=== PATIENT | male | born 1990 | race Hispanic/Latino ===

== ENCOUNTER 2021-10-20 13:52 | Emergency (ER) | payer SELFPAY ==
[2021-10-20 14:05] VITALS: BP 152/82; PULSE 87; RESP 16; TEMP 37.1; O2SAT 99
--- NOTE | 2021-10-20 14:08 | ED.EAR ---
HPI - Ear Problem General Chief complaint: Ear Stated complaint: ear pain Time Seen by Provider: 10/20/21 14:08 Source: patient Mode of arrival: ambulatory Limitations: no limitations History of Present Illness HPI Narrative: Romario Wang is a 31 yo male with no PMH who comes to with complaints of right ear pain that started over a week ago. Was is with him who will help translate, patient states that having ear pain for about a week that nothing makes it worse or better except when he tries to lay on the right side. Is no history of ear infections has no sore throat has no allergic symptoms denies fever, is taken nothing for the pain Related Data Allergies Allergy/AdvReac Type Severity Reaction Status Date / Time No Known Allergies Allergy Verified 10/20/21 14:15 Review of Systems Review of Systems: CONSTITUTIONAL: Denies fever, chills, sweats. EYES: Denies visual changes, redness, discharge. ENT: Denies rhinorrhea, congestion, sore throat, right otalgia. CARDIOVASCULAR: Denies chest pain, palpitations, edema. RESPIRATORY: Denies dyspnea, wheezing, cough GASTROINTESTINAL: Denies abdominal pain, nausea, vomiting, diarrhea. GENITOURINARY: Denies dysuria, hematuria, abnormal discharge SKIN: Denies rash or itching. NEUROLOGIC: Denies numbness, or focal weakness. PSYCHIATRIC: Denies anxiety or depression. [facility] Social History Social History (Updated 10/20/21 @ 16:52 by Pam Smith CNP) Smoking status: Never smoker Alcohol intake: current Comments At time of signature, I agree with nursing past medical, surgical, social and family history. There is no relevant family history pertinent to the presenting complaint. Exam Narrative: GENERAL: This is a well-nourished, well-developed patient, in mild distress. HEAD: normocephalic, atraumatic. EYES: . Sclera clear/white. Vision is grossly intact. EARS: External ears normal, auditory canals erythematous with drainage from right ear canal that is white and thick. Right TM appears to be perforated right canal very tender hearing grossly intact. NOSE: External nose normal without nasal discharge, nares without redness, no rhinorrhea. THROAT: Mucous membranes moist, NECK: Neck supple, non-tender CARDIOVASCULAR: Regular rate and rhythm without murmurs, gallops, or rubs. RESPIRATORY: Clear to auscultation. Breath sounds equal bilaterally. No wheezes, rales, or rhonchi. GASTROINTESTINAL: Abdomen soft, SKIN: warm, intact with no suspicious lesions or rash, good texture and turgor. NEURO: awake, alert, and oriented to person, place and time. There were no obvious focal neurologic abnormalities. Steady gait EXTREMITIES: Normal range of motion. BACK: Nontender without deformity Course Course Emergency Course: Patient comes with bilateral ear pain ear pain much worse on the right; exam R appears to be perforated oozing white thick discharge Started on ofloxacin eardrops for perforated eardrum, amoxicillin as a general antibiotic discussed Tylenol or ibuprofen for pain patient verbalized he understood directions Level of Care: Express Care Visit Vital Signs Vital signs: Vital Signs Temperature 98.7 F 10/20/21 14:05 Pulse Rate 87 10/20/21 14:05 Respiratory Rate 16 10/20/21 14:05 Blood Pressure 152/82 H 10/20/21 14:05 Pulse Oximetry 99 10/20/21 14:05 Temperature 98.7 F 10/20/21 14:05 Pulse Rate 87 10/20/21 14:05 Respiratory Rate 16 10/20/21 14:05 Blood Pressure 152/82 H 10/20/21 14:05 Pulse Oximetry 99 10/20/21 14:05 Medical Decision Making Differential Diagnosis Differential Diagnosis: Otitis media versus otitis externa versus perforated eardrum versus viral syndrome Vital Signs Vital Signs: Vital Signs Temperature 98.7 F 10/20/21 14:05 Pulse Rate 87 10/20/21 14:05 Respiratory Rate 16 10/20/21 14:05 Blood Pressure 152/82 H 10/20/21 14:05 Pulse Oximetry 99 10/20/21 14:05 Temperature 98.7 F 10/20/21
== END 2021-10-20 14:40 | disposition home or self-care (01) ==
PROVIDERS: Emergency Provider Nurse Practitioner
DX: H60.392 Other infective otitis externa, left ear (principal); H66.011 Acute suppurative otitis media with spontaneous rupture of ear drum, right ear
CPT/HCPCS: 99203; G0463